=== PATIENT | female | born 1970 | race Caucasian/White ===

== ENCOUNTER 2021-05-25 12:07 | Emergency (ER) | payer OTHER ==
[~2021-05-25 12:07] MED LIST: CELEBREX **OUT100 MG PO; FLEXERIL10 MG PO; LYRICA100 MG PO; TRAMADOL HCL50 MG PO
[2021-05-25 13:50] LABS: BASOPHIL 0.1 % (0-2); EOSINOPHIL 0 % (0-5); HCT 37.5 % (37.0-47.0); HGB 13.1 g/dl (12.5-16.0); LYMPHOCYTE 4.8 % (15-48); MCH 31.5 pg (25.0-31.0); MCHC 34.9 g/dL (32.0-36.0); MCV 90.1 fL (78.0-100.0); MONOCYTE 5.4 % (0-12); MPV 9.3 fL (6.0-9.5); NEUTROPHIL 89.3 % (41-80); NRBC 0; PLT 160 K/uL (150-400); RBC 4.16 M/uL (4.20-5.40); RDW 12.3 % (11.5-14.0); WBC 16.6 K/uL (4.0-10.5)
[2021-05-25 13:51] LABS: BILIRUBIN 1+ mg/dL (NEGATIVE); BLOOD 3+ Ery/uL (NEGATIVE); CLARITY HAZY (CLEAR); COLOR YELLOW (YELLOW); GLUCOSE (U) NORMAL (NORMAL); LEUKOCYTES NEGATIVE Leu/uL (NEGATIVE); NITRITE NEGATIVE (NEGATIVE); PROTEIN 3+ mg/dL (NEGATIVE); SPECIFIC GRAVITY >=1.030 (1.001-1.030); UROBILINOGEN 0.2 mg/dL (0.2-1.0)
[2021-05-25 14:07] LABS: BACTERIA 2+; URINARY RBC 20-50
[2021-05-25 14:24] LABS: BUN/CREAT RATIO (CALC) 25.4 RATIO; CREATININE 1.14 mg/dL (0.51-0.95); POTASSIUM 3.6 mmol/L (3.5-5.1)
[2021-05-25] MEDS ORDERED: FIORICET1 EACH PO (16:22)
[2021-05-25] MEDS ORDERED: ZOFRAN4 M1 PO (16:23)
== END 2021-05-25 16:39 | disposition home or self-care (01) ==
LOC: FER 12:07
PROVIDERS: Nurse Practitioner Family
DX: G43.909 Migraine, unspecified, not intractable, without status migrainosus (principal)
CPT/HCPCS: 36415; 80048; 81001; 85025; J1100; J1200; J1885; J2405; J7030

== ENCOUNTER 2022-02-22 12:11 | Emergency (ER) | payer OTHER ==
[~2022-02-22 12:11] MED LIST changes: +FIORICET1 EACH PO; +ZOFRAN4 M1 PO
[2022-02-22 12:53] LABS: BASOPHIL 0.5 % (0-2); EOSINOPHIL 1.6 % (0-5); HCT 40.4 % (37.0-47.0); HGB 13.3 g/dl (12.5-16.0); MCH 30.2 pg (25.0-31.0); MCHC 32.9 g/dL (32.0-36.0); MCV 91.8 fL (78.0-100.0); MONOCYTE 5.8 % (0-12); MPV 9.5 fL (6.0-9.5); NEUTROPHIL 58.7 % (41-80); NRBC 0; PLT 188 K/uL (150-400); RDW 12.4 % (11.5-14.0); WBC 5.5 K/uL (4.0-10.5)
[2022-02-22 13:50] LABS: BUN/CREAT RATIO (CALC) 20.8 RATIO; CREATININE 0.96 mg/dL (0.51-0.95); FT4 (FREE T4) 1.2 ng/dL (0.76-1.46); MAGNESIUM 1.9 mg/dL (1.8-2.4); POTASSIUM 4.1 mmol/L (3.5-5.1)
[2022-02-22] MEDS ORDERED: PRINIVIL10 MG PO (15:07)
== END 2022-02-22 15:39 | disposition home or self-care (01) ==
LOC: FER 12:11
PROVIDERS: Internal Medicine
DX: I16.0 Hypertensive urgency (principal); R20.2 Paresthesia of skin
CPT/HCPCS: 36415; 70551; 80048; 83735; 84439; 84443; 84484; 85025; 93005; J3490